=== PATIENT | male | born 1965 | race Hispanic/Latino ===

== ENCOUNTER → 2017-10-29 | Day surgery (SDC) | payer BC ==
[~2017-10-29] MED LIST: ASPIRIN81 MG PO; COCONUT OIL PO; DAILY VITAMIN1 EAC3 PO; FENTANYL CITRATE/PF 100MCG/2 ML INJ ONE; LIDOCAINE HCL 2% LOCAL INJ 5 ML SDV VIAL INJ ONE; MIDAZOLAM HCL 2 MG/2 ML VIAL ONE; PROPOFOL IV EMULSION 10 MG/ML 50 ML VIAL ONE; VITAMIN D PO
--- NOTE | 2017-10-29 10:58 | Operative Report ---
DATE OF PROCEDURE: October 29, 2017 REFERRING PHYSICIAN: Dr. Willard Lehman PROCEDURES PERFORMED 1. Esophagogastroduodenoscopy with biopsies and esophageal dilatation. 2. Colonoscopy with polypectomy. INDICATIONS FOR EGD: Dysphagia to solids. INDICATIONS FOR COLONOSCOPY: Colorectal cancer screening and personal history of colon polyps. MEDICATION: Patient was done under MAC. Please see anesthesiologist's note. PROCEDURE: With the patient in the left lateral decubitus position, the flexible fiberoptic Olympus gastroscope was introduced into the esophagus under direct visualization without any difficulty. The GE was some strictured and ulcerated. It was dilated to size 50-Faroese Ocampo and biopsied. The scope was then advanced with ease into the stomach. Mucosa overlying the antrum and the body revealed some diffuse erythema and moderate edema, and biopsies were obtained and sent to stain for H. pylori. There was a prominent peripyloric fold that was biopsied. The pylorus was intubated with ease and the scope was advanced all the way to the 2nd portion of the duodenum. There was a scalloped fold noted in the proximal 2nd portion and biopsies were obtained to rule out sprue. The mucosa overlying the duodenal bulb with revealed some patchy intense erythema. The scope was then withdrawn back into the stomach and retroflexed. The mucosa overlying the fundus and the cardia appeared to be within normal limits. The scope was then straightened out. The stomach was decompressed. The scope was subsequently withdrawn. Patient tolerated the procedure well. IMPRESSION 1. 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 2. Gastritis, biopsied. Biopsies sent to stain for Helicobacter pylori. 3. Prepyloric fold, biopsied. 4. Rule out sprue. PLAN: Follow up histology. Initiate Protonix 40 mg 1 p.o. q.a.m. a.c. The aforementioned ulcerated stricture at the GE junction will need to be re-evaluated after 2 months of therapy. Patient was then turned around. After adequate lubrication of the anal canal, a flexible fiberoptic Olympus colonoscope was inserted into the rectum with ease and advanced all the way to the ileocolic anastomosis. Anastomosis appeared intact. One polyp was snared and 1 polyp was hot biopsied from the distal ascending colon. The transverse and descending grossly appeared to be within normal limits. One polyp was snared from the sigmoid and 2 polyps were hot biopsied from the rectum. The scope was then retroflexed into the distal rectum and small internal hemorrhoids were noted, none of which was actively bleeding. The scope was then straightened out. It was subsequently withdrawn. Patient tolerated the procedure well. IMPRESSION 1. Ileocolic anastomosis intact. 2. Ascending colon polyps times 2, one snared and one hot biopsied. 3. Sigmoid colon polyps, snared times 1. 4. Rectal polyps, hot biopsied times 2. 5. Internal hemorrhoids, none actively bleeding. PLAN: Follow up histology. Initiate high-fiber and low-fat diet. Initiate high-fiber supplement. Patient will need a followup colonoscopy in 3 years. Job#: [id number] RI cc:EL LEHMAN MD
== END | disposition home or self-care (01) ==
LOC: OR 07:12
PROVIDERS: ATTEND Internal Medicine Gastroenterology
DX: K22.2 Esophageal obstruction (principal); D12.2 Benign neoplasm of ascending colon; K62.1 Rectal polyp; K29.50 Unspecified chronic gastritis without bleeding; K22.10 Ulcer of esophagus without bleeding; K31.89 Other diseases of stomach and duodenum; Z98.0 Intestinal bypass and anastomosis status; K64.8 Other hemorrhoids; Z01.810 Encounter for preprocedural cardiovascular examination; Z79.82 Long term (current) use of aspirin; Z68.26 Body mass index [BMI] 26.0-26.9, adult
CPT/HCPCS: 43239; 43450; 45384; 45385; 93005; J2250; J2001

== ENCOUNTER 2021-11-29 09:28 | Emergency (ER) | payer BC, OTHER ==
[~2021-11-29] VITALS: Ht 167.6 cm; Wt 72.6 kg
[~2021-11-29 09:28] MED LIST changes: -FENTANYL CITRATE/PF 100MCG/2 ML INJ ONE; -LIDOCAINE HCL 2% LOCAL INJ 5 ML SDV VIAL INJ ONE; -MIDAZOLAM HCL 2 MG/2 ML VIAL ONE; -PROPOFOL IV EMULSION 10 MG/ML 50 ML VIAL ONE
== END 2021-11-29 10:36 | disposition home or self-care (01) ==
LOC: ER 09:48
DX: S00.03XA Contusion of scalp, initial encounter (principal); W20.8XXA Other cause of strike by thrown, projected or falling object, initial encounter; Y99.0 Civilian activity done for income or pay; Z98.0 Intestinal bypass and anastomosis status; Z87.19 Personal history of other diseases of the digestive system
CPT/HCPCS: 70450; 72125; 99284

== ENCOUNTER → 2025-03-14 | Day surgery (SDC) | payer BC ==
[2025-03-05 13:35] LABS: BASOPHILS % 0.8 % (0.0-1.0); EOSINOPHILS % 2.3 % (0.0-6.0); LYMPHOCYTES % 17.0 % (18.0-39.1); MONOCYTES % 8.9 % (4.4-11.3); NEUTROPHILS % 70.7 % (38.7-80.0); RED CELL DISTRIBUTION WIDTH 12.8 % (11.7-14.4)
[2025-03-05 13:57] LABS: EST GLOMERULAR FILTRATION RATE 101.0 ML/MIN (>=60)
[~2025-03-14] MED LIST changes: +AMPICILLIN PO; +ANTIBIOTIC28.4 GM PO; +BUPIVACAINE LIPOSOME/PF 266 MG/20 ML IJ ONE; +DEXAMETHASONE SOD PHOS INJ 4 MG/ML SDV ONE; +EPHEDRINE SULFATE INJ 50 MG/ML VIAL ONE; +FAMOTIDINE 20 MG/2 ML VIAL IV ONE; +FENTANYL CITRATE/PF 100MCG/2 ML INJ ONE; +FLANAX220 MG PO; +LIDOCAINE HCL 2% LOCAL INJ 5 ML SDV VIAL INJ ONE; +MIDAZOLAM HCL 2 MG/2 ML VIAL ONE; +OMEGA 3 1,0001 EACH PO; +ONDANSETRON HCL INJ 2MG/ML 2ML 2 MG/ML VIAL ONE; +PANTOPRAZOLE SO40 MG PO; +PROPOFOL IV EMULSION 10 MG/ML 20 ML VIAL ONE; +ROCURONIUM BROMIDE 1 ML IV ONE; +SEVOFLURANE INHAL SOLN 250 ML PEN BTL ONE; +SUGAMMADEX SODIUM 200 MG/2 ML VIAL IV ONE; +VIT D PO
[2025-03-14] MEDS: LACTATED RINGER'S 1,000 ML ONE (09:03)
[2025-03-14 15:23] VITALS: BP 151/84; PULSE 75; RESP 18; O2SAT 97
== END | disposition home or self-care (01) ==
LOC: OR 08:34
PROVIDERS: ATTEND Surgery
DX: K42.0 Umbilical hernia with obstruction, without gangrene (principal); K43.6 Other and unspecified ventral hernia with obstruction, without gangrene; Z01.810 Encounter for preprocedural cardiovascular examination; Z01.812 Encounter for preprocedural laboratory examination
CPT/HCPCS: 36415; 49594; 71046; 80048; 85025; 93005; C1781; J0666; J0690; J1100; J1308; J2003; J2250; J2405; J2704; J3010; J7121